=== PATIENT | male | born 1995 ===

== ENCOUNTER 2019-03-05 03:03 | Emergency (ER) | payer SELFPAY ==
[~2019-03-05] VITALS: Ht 177.8 cm; Wt 99.8 kg
[2019-03-05] MEDS ORDERED: Veetids 500500 MG PO (03:27)
== END 2019-03-05 03:54 | disposition home or self-care (01) ==
LOC: ER 03:03
DX: K08.89 Other specified disorders of teeth and supporting structures (principal); Z79.899 Other long term (current) drug therapy
CPT/HCPCS: 96372; 99282-25; J1885

== ENCOUNTER 2019-03-16 04:58 | Emergency (ER) | payer SELFPAY ==
[~2019-03-16] VITALS: Ht 177.8 cm; Wt 99.8 kg
[~2019-03-16 04:58] MED LIST: Veetids 500500 MG PO
[2019-03-16] MEDS ORDERED: Norco 5-325 Ta1 EACH PO (06:20)
== END 2019-03-16 07:42 | disposition home or self-care (01) ==
LOC: ER 04:58
DX: K08.89 Other specified disorders of teeth and supporting structures (principal); Z87.891 Personal history of nicotine dependence
CPT/HCPCS: 99282